=== PATIENT | female | born 1965 | race Caucasian/White ===

== ENCOUNTER 2021-02-01 14:45 | Emergency (ER) | payer SELFPAY ==
[~2021-02-01 14:45] MED LIST: BISOPROLOL FUMAR5 M1 PO; BUPROPION XL150 MG PO; MOTRIN600 MG PO; NORCO 5-325 TA1 EACH PO; PREDNISONE 20MG20 MG PO; TAMIFLU 75MG CA75 MG PO; VALTREX1000 MG PO; ZPAK PO
== END 2021-02-01 18:13 | disposition home or self-care (01) ==
LOC: FER 14:45
DX: J02.9 Acute pharyngitis, unspecified (principal); H92.03 Otalgia, bilateral; F17.210 Nicotine dependence, cigarettes, uncomplicated; Z88.0 Allergy status to penicillin
CPT/HCPCS: 87880; 99283